=== PATIENT | male | born 1995 | race African-American/Black ===

== ENCOUNTER 2021-04-07 12:39 | Outpatient (REF) | payer OTHER, SELFPAY ==
--- NOTE | ~2021-04-07 | XR_ITS ---
EXAMINATION: XR FOOT, RIGHT CLINICAL INFORMATION: Pain in right foot. COMPARISON: None TECHNIQUE: AP, lateral, and oblique views of the right foot. FINDINGS: The bones and soft tissues are normal. No fracture. Alignment is anatomic. Joint spaces are maintained. XR/XR foot RT min 3V IMPRESSION: Normal right foot.
== END 2021-04-07 12:40 | disposition home or self-care (01) ==
LOC: HO.HMGCX 12:39
PROVIDERS: PCP Internal Medicine; Visit Provider Internal Medicine
DX: G89.29 Other chronic pain (principal); M79.671 Pain in right foot
CPT/HCPCS: 73630